=== PATIENT | female | born 1985 | race African-American/Black ===

== ENCOUNTER 2021-10-08 15:16 | Emergency (ER) | payer SELFPAY ==
[~2021-10-08] VITALS: Ht 162.6 cm; Wt 52.3 kg
[2021-10-08 15:30] VITALS: BP 101/75
[2021-10-08] MEDS ORDERED: ibuprofen tablet 400 MG TABLET PO ONE (15:45)
[2021-10-08] MEDS ORDERED: bacitracin 15gm ointment TP ONE (18:25)
== END 2021-10-08 18:21 | disposition home or self-care (01) ==
LOC: ER 15:17
DX: S09.90XA Unspecified injury of head, initial encounter (principal); M25.562 Pain in left knee; V87.8XXA Person injured in other specified noncollision transport accidents involving motor vehicle (traffic), initial encounter; Y93.89 Activity, other specified; Y92.89 Other specified places as the place of occurrence of the external cause; Y99.8 Other external cause status
CPT/HCPCS: 70450; 70486; 72125; 73130; 73564; 99284; A6449